=== PATIENT | male | born 1945 | race Two or more races ===

== ENCOUNTER 2019-12-28 04:05 | Emergency (ER) | payer OTHER ==
[~2019-12-28] VITALS: Ht 157.5 cm; Wt 63.5 kg
[2019-12-28] MEDS ORDERED: HYDROCODONE/APAP 5/325MG 1 EACH TABLET ONE ×2 (04:10→05:56)
--- NOTE | 2019-12-28 04:10 | NUR ---
PT CAME TO THE ED C/O LT KNEE PAIN WORSE TODAY, FELL YESTERDAY. -LOC. DENIES ANY HT. PT ABLE TO BEAR WEIGHT. PT AAOX4, VSS, NO ACUTE DISTRESS NOTED. PT CONNECTED TO THE MONITOR AND POX
--- NOTE | 2019-12-28 04:15 | NUR ---
XRAY AT BEDSIDE
[2019-12-28] MEDS ORDERED: HYDROCODONE/APAP 5/325MG 1 EACH TABLET PO ONE ×2 (04:30→06:00)
--- NOTE | 2019-12-28 05:44 | NUR ---
KNEE XRAY RESULTS RECEIVED THRU FAX. SUBMITTED TO DR QUIJANO,
[2019-12-28] MEDS ORDERED: IBUPROFEN 600 MG TABLET PO ONE ×2 (05:56→06:00)
--- NOTE | 2019-12-28 06:00 | NUR ---
PT TAKEN TO CT
--- NOTE | 2019-12-28 06:27 | NUR ---
[employer] GUARD AT BEDSIDE FOR BLOOD DRAW
--- NOTE | 2019-12-28 06:27 | NUR ---
PT BACK FROM CT
[2019-12-28 06:41] LABS: BASOPHILS % (AUTO) 0.3 % (0.0-2.0); EOSINOPHILS % (AUTO) 0.1 % (0.0-6.0); HEMATOCRIT 45 % (39-51); LYMPHOCYTES # (AUTO) 0.7 /CMM (0.8-4.8); LYMPHOCYTES % (AUTO) 5.2 % (20.0-44.0); MEAN CORPUSCULAR HGB CONC 33 g/dl (31.0-36.0); MEAN CORPUSCULAR VOLUME 96 fL (80-96); MONOCYTES # (AUTO) 1.7 /CMM (0.1-1.30); NEUTROPHILS # (AUTO) 11.7 /CMM (1.8-8.9); NEUTROPHILS % (AUTO) 82.4 % (43.0-81.0); PLATELET COUNT (AUTO) 184 /CMM (150-450); RED BLOOD CELL COUNT(AUTO) 4.69 MIL/uL (4.5-6.0); WHITE BLOOD COUNT (AUTO) 14.2 K/uL (4.3-11.0)
[2019-12-28 06:47] LABS: CALCIUM, SERUM 8.7 mg/dL (8.5-10.1); CREATININE 0.9 mg/dL (0.6-1.3); POTASSIUM 3.5 mmol/L (3.5-5.1)
[2019-12-28 06:55] LABS: ALBUMIN 3.7 g/dL (3.4-5.0); BILIRUBIN,DIRECT 0.4 mg/dL (0.0-0.2); BILIRUBIN,TOTAL 2.1 mg/dL (0.2-1.0)
--- NOTE | 2019-12-28 07:06 | NUR ---
CALLANEL MONTENEGRO AND ASKED FOR CT SCAN AND HIP AND PELVIC X.RAY RESULTS TO BE FAXED OVER.
--- NOTE | 2019-12-28 07:19 | NUR ---
[facility] CALLED FOR DR MCCLENDON
--- NOTE | 2019-12-28 08:28 | NUR ---
PICKED UP BY ANGIE ANN VIA [facility] FOR CT SCAN
--- NOTE | 2019-12-28 08:37 | NUR ---
ANEL FROM [facility] CALLED PT GOING TO [place] [phone] SHARRON HAILE IN 60 MINS [facility].
--- NOTE | 2019-12-28 09:00 | NUR ---
REPORT GIVEN TO LUANN GUERRA OF [facility].
[2019-12-28 09:11] VITALS: BP 129/68
--- NOTE | 2019-12-28 09:12 | NUR ---
Patient picked up by [facility] in stable condition. Patient will be brought to [facility] ED. Clinicals provided to EMS.
== END 2019-12-28 09:19 | disposition short-term general hospital (02) ==
LOC: ER 04:07
DX: S80.02XA Contusion of left knee, initial encounter (principal); M25.462 Effusion, left knee; I10 Essential (primary) hypertension; W18.39XA Other fall on same level, initial encounter; Y93.01 Activity, walking, marching and hiking; Y92.89 Other specified places as the place of occurrence of the external cause; Y99.8 Other external cause status
CPT/HCPCS: 36415; 72192-TC; 73502; 73564-TC; 73700-TC; 80048-TC; 80076-TC; 85025-TC; 85730-TC